=== PATIENT | male | born 1985 | race Caucasian/White ===

== ENCOUNTER 2020-05-10 06:37 | Emergency (ER) | payer MEDICAID ==
[~2020-05-10] VITALS: Ht 180.3 cm; Wt 68.1 kg
[~2020-05-10 06:37] MED LIST: ONDA8TAB9 PO
[2020-05-10] MEDS ORDERED: sulfamethoxazole/trimethoprim DS (800/160mg) tablet PO ONE (07:20)
[2020-05-10] MEDS ORDERED: SULF1TAB49 PO (08:06)
[2020-05-10] MEDS ORDERED: HYDR-4353 PO (08:06)
[2020-05-10 08:21] VITALS: BP 112/75
== END 2020-05-10 08:24 | disposition home or self-care (01) ==
LOC: ER 06:37
DX: L02.611 Cutaneous abscess of right foot (principal); M79.671 Pain in right foot; Z72.89 Other problems related to lifestyle; Z79.2 Long term (current) use of antibiotics; Z79.899 Other long term (current) drug therapy
CPT/HCPCS: 73630; 99283

== ENCOUNTER 2025-03-31 13:18 | Inpatient (IN) | payer MEDICAID ==
[~2025-03-31] VITALS: Ht 180.3 cm; Wt 100.0 kg
[2025-03-31 14:19] LABS: MEAN PLATELET VOLUME 7.8 FL (7.4-10.4); RED CELL DISTRIBUTION WIDTH 13.9 % (11.5-14.5)
[2025-03-31 14:33] LABS: CREATININE 0.97 MG/DL (0.60-1.10); TOTAL CARBON DIOXIDE 28.0 MMOL/L (24-32); eCRCL 109 ML/MIN; eGFR 86 ML/MIN
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
--- NOTE | 2025-03-31 16:13 | RADIOLOGY REPORT ---
Indication: infection Comparison: None Technique: Helical axial scans were performed through the abdomen and pelvis without intravenous contrast. Subsequently, coronal and sagittal reformations were obtained. Dose lowering techniques have been used including automated exposure control and adjustment of mA and/or kv according to patient size. FINDINGS: Limited evaluation of the vasculature and solid organs due to lack of intravenous contrast. LUNGS BASES: Clear LIVER: Normal noncontrast appearance of the liver SPLEEN: Normal GALLBLADDER: Normal PANCREAS: Normal ADRENAL GLANDS: Normal KIDNEYS: No hydronephrosis or obstructing renal stone. GI: No bowel dilation or wall thickening. Appendix not discretely identified. LYMPH NODES: Right inguinal upper thigh and external iliac lymphadenopathy. VASCULAR STRUCTURES: Normal BLADDER: Normal PELVIC ORGAN: Normal FREE AIR OR FREE FLUID: None OSSEOUS STRUCTURES: Multilevel degenerative changes of the spine. SOFT TISSUES: Subcutaneous soft tissue swelling in the visualized portion of the right upper thigh. Metallic projectile in the right gluteus talat muscle. DLP is 2021.8mGy-cm. CTDI vol is 56mGy. IMPRESSION: 1. Subcutaneous soft tissue swelling in the visualized portion of the right upper thigh. Correlate with direct visualization to evaluate for infection. 2. Right inguinal upper thigh and external iliac lymphadenopathy, likely reactive. 3. Metallic projectile in the right gluteus tlaat muscle.
--- NOTE | 2025-03-31 16:26 | RADIOLOGY REPORT ---
CLINICAL HISTORY: septic TECHNIQUE: Single view of the chest was obtained. COMPARISON: CT CHEST on DOS: 08/25/21, CHEST,SINGLE VIEW on DOS: 08/25/21 FINDINGS: The heart size and pulmonary vasculature are normal. The lungs are clear. IMPRESSION: NO ACUTE CARDIOPULMONARY PROCESS.
[2025-03-31] MEDS ORDERED: piperacillin/tazo 4.5gm/100ml 100 ML IV ONE (16:33)
[2025-03-31] MEDS: ketorolac trometh 30MG/ML vial 30 MG/ML VIAL IV ONE (16:34)
[2025-03-31] MEDS: morphine 4 MG/ML inj SYRINge IV ONE (16:35)
[2025-03-31] MEDS: normal saline 1000ml 1,000 ML IV ONE (16:35)
[2025-03-31] MEDS: normal saline 1000ML IV soln IVB ONE (16:35)
[2025-03-31] MEDS ORDERED: magnesium sulf-water 4G/100mL 100 ML IV PRN (16:45)
[2025-03-31] MEDS ORDERED: mag hydrox/Alum hydrox/simeth 30ml oral suspension PO PRN (16:45)
[2025-03-31] MEDS ORDERED: magnesium sulf-water 2g/50mL 50 ML IV PRN (16:45)
[2025-03-31] MEDS ORDERED: potassium Cl 40MEQ/1/2NS 520ml 520 ML IV PRN (16:45)
[2025-03-31] MEDS ORDERED: magnesium hydroxide 30ml (MOM) UD suspension PO PRN (16:45)
[2025-03-31] MEDS ORDERED: potassium Cl 20 mEq SR tablet PO PRN ×2 (16:45)
[2025-03-31] MEDS ORDERED: morphine 4 MG/ML inj SYRINge IV PRN (17:03)
[2025-03-31 17:27] LABS: CHOL/HDL RATIO 1.6 (0.00-4.99); LDL CHOLESTEROL 31 MG/DL (50-100); PRO BRAIN NATRIURETIC PEPTIDE 1005 PG/ML (0-125)
[2025-03-31] MEDS: vancomycin/NS 1 GM ADD-VANTAGE 250 ML IV ONE (17:38)
[2025-03-31] MEDS: normal saline 1000ml 1,000 ML IV SCH (17:45)
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
[2025-03-31 18:19] LABS: LEUKOCYTE ESTERASE ,URINE NEGATIVE (Neg); NITRITES, URINE NEGATIVE (Neg); OCCULT BLOOD,URINE TRACE-INTACT (Neg)
[2025-03-31] MEDS: nicotine 21mg patch - 24 hr TD SCH (18:20)
[2025-03-31 18:24] LABS: UA COLLECTION TYPE URINAL
[2025-03-31 18:25] LABS: MUCUS STRANDS FEW /LPF (Neg); SQUAMOUS EPITHELIAL CELL,UR FEW /LPF (FEW); URINE AMPHETAMINE SCREEN POSITIVE (Neg); URINE BARBITUATE SCREEN NEGATIVE (Neg); URINE BENZODIAZEPINES SCREEN NEGATIVE (Neg); URINE CANNABINOID SCREEN NEGATIVE (Neg); URINE COCAINE SCREEN NEGATIVE (Neg); URINE METHADONE SCREEN NEGATIVE (Neg); URINE OPIATE SCREEN POSITIVE (Neg); URINE PHENCYCLIDINE SCREEN NEGATIVE (Neg)
[2025-03-31] MEDS: piperacillin/tazo 3.375gm/50ml 50 ML IV SCH (19:44)
[2025-03-31] MEDS: K and/or MAG REPLACEMENT MC SCH (19:56)
[2025-03-31] MEDS: docusate sod 100mg capsule PO SCH (20:00)
[2025-03-31] MEDS: HYDROmorphone/PF 0.2 MG/ML SYRINGE IV PRN (22:32)
[2025-03-31 23:00] VITALS: BP 118/71; PULSE 85; RESP 22; TEMP 97.7; O2SAT 97
[2025-04-01] MEDS: HYDROcodone/acetaminophen 5mg/325mg tablet PO PRN (00:19)
[2025-04-01] MEDS: normal saline 1000ml 1,000 ML IVB ONE (01:35)
[2025-04-01 02:00] VITALS: BP 138/84; PULSE 91; RESP 22; TEMP 97.8; O2SAT 96
[2025-04-01 03:22] LABS: MEAN PLATELET VOLUME 8.1 FL (7.4-10.4); RED CELL DISTRIBUTION WIDTH 14.2 % (11.5-14.5)
[2025-04-01 03:32] LABS: CREATININE 0.78 MG/DL (0.60-1.10); TOTAL CARBON DIOXIDE 26.7 MMOL/L (24-32); eCRCL 135 ML/MIN; eGFR > 90 ML/MIN
[2025-04-01 03:48] LABS: EOSINOPHILS % (MANUAL) 1.0 % (0-6); LYMPHOCYTES % (MANUAL) 8.0 % (21-51); MONOCYTES % (MANUAL) 5.0 % (2-12); NEUTROPHILS % (MANUAL) 86.0 % (42-75); PLATELET ESTIMATE NORMAL
[2025-04-01] MEDS: vancomycin/NS 1 GM ADD-VANTAGE 250 ML IV SCH (04:45)
[2025-04-01] MEDS: ondansetron/PF 4mg/2ml inj IV PRN (06:56)
[2025-04-01 07:30] VITALS: BP 129/85; PULSE 99; RESP 18; TEMP 101.3; O2SAT 97
[2025-04-01] MEDS: enoxaparin 40mg/0.4ml syringe SUBCUT SCH (07:51)
[2025-04-01 08:13] LABS: LACTATE DEHYDROGENASE 227 U/L (85-227)
[2025-04-01] MEDS ORDERED: PERFLUTREN PROTEIN-A MICROSPHR (Optison) 0.22 MG/ML 3ML VIAL IV ONE (12:40)
[2025-04-01 12:45] VITALS: RESP 14
[2025-04-01] MEDS ORDERED: vancomycin/NS 1 GM ADD-VANTAGE 250 ML IV SCH (14:00)
[2025-04-01] MEDS: magnesium Cl slow-release 64mg tablet PO PRN (14:36)
--- NOTE | 2025-04-01 18:55 | CARDIOLOGY REPORT ---
APPROVED REPORT EXAM: Comprehensive 2D, Doppler, and color-flow Echocardiogram. 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 3.26 cm IVC 16.17 mm FS (%) 27.4 % SV 60.3 ml CO 4.5 L/min M-Mode Dimensions Left Atrium(MM) 3.54 (2.5-4.0cm) Aortic Root 4.01 (2.2-3.7cm) Aortic Cusp Exc 3.23 (1.5-2.0cm) MV EPSS 0.4 (<0.5cm) Aortic Valve AoV Peak Kt. 118.2 cm/s AoV VTI 23.0 cm AO Peak GR. 5.6 mmHg AO Mean GR. 3 mmHg LVOT VTI 20.33 cm LVOT Peak Kt. 99.4 cm/s CROW(VTI)/BSA 4.31 cm2/m2 CROW (VTI) 4.31 cm2 AV DI 0.89 % Mitral Valve MV E Velocity 76.5 cm/s MV Peak Gr. 3 mmHg MV DECEL TIME 204 ms MV A Velocity 44.4 cm/s MV PHT 64 ms E/A Ratio 1.7 MVA (PHT) 3.44 cm2 MV VMax 92.7 cm/s TDI Lateral E' P. V 13.52 cm/s Medial E' P. V 12.36 cm/s E/Lateral E' 5.7 E/Medial E' 6.2 Tricuspid Valve TR P. Velocity 138 cm/s RAP ESTIMATE 10 mmHg TR Peak Gr. 8 mmHg RVSP 18 mmHg LEFT VENTRICLE Normal LV size and wall thickness. Overall systolic function is normal. LVEF is 55-60%. RIGHT VENTRICLE RV is normal size and function. ATRIA The left atrium size is normal. AORTIC VALVE Trileaflet AV appears mildly sclerotic without stenosis. No insufficiency. No vegetation seen. MITRAL VALVE Mild mitral annular calcification without stenosis. Trace regurgitation. No vegetation seen. TRICUSPID VALVE The tricuspid valve is normal in structure with trace regurgitation. No vegetation seen. PULMONIC VALVE Pulmonic valve is grossly normal in structure with physiologic insufficiency. No vegetation seen. GREAT VESSELS Aortic root is mildly dilated (4.0 cm). The ascending aorta is normal in size. The IVC is normal in size and collapses >50% with inspiration. PERICARDIUM Normal pericardium. No effusion. Other Information Study Quality: Adequate Conclusion Normal LV size and wall thickness. Overall systolic function is normal. LVEF is 55-60%. RV is normal size and function. The left atrium size is normal. Trileaflet AV appears mildly sclerotic without stenosis. No insufficiency. No vegetation seen. Mild mitral annular calcification without stenosis. Trace regurgitation. No vegetation seen. The tricuspid valve is normal in structure with trace regurgitation. No vegetation seen. Pulmonic valve is grossly normal in structure with physiologic insufficiency. No vegetation seen. Aortic root is mildly dilated (4.0 cm). Normal pericardium. No effusion.
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
[2025-04-02] MEDS ORDERED: VANCOMYCIN LEVEL IV ONE (13:30)
== END 2025-04-01 16:32 | disposition left against medical advice (07) | DRG 720 ==
LOC: ER 13:18 → ED HOLD 16:53 → PCU 3S 22:56 → UNDODISIN 04-01 08:40
PROVIDERS: ADMIT Family Medicine; ATTEND Family Medicine
DX: A41.9 Sepsis, unspecified organism (principal); L03.115 Cellulitis of right lower limb; F11.20 Opioid dependence, uncomplicated; Z53.21 Procedure and treatment not carried out due to patient leaving prior to being seen by health care provider; F17.200 Nicotine dependence, unspecified, uncomplicated
CPT/HCPCS: 36415; 71045; 74176; 80053; 80061; 80305; 81001; 82550; 83036; 83605; 83615; 83690; 83735; 83880; 84145; 85007; 85025; 87040; 87081; 93306; 96374; 96375; 99285; A6258; G0378; J1171; J1650; J1885; J2270; J2405; J2543; J3373; J7030; J7040